=== PATIENT | female | born 2005 | race African-American/Black ===

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

== ENCOUNTER 2024-01-10 23:05 | Emergency (ER) | payer OTHER, SELFPAY ==
[2024-01-10 23:07] VITALS: TEMP 36.5
[2024-01-10 23:08] VITALS: BP 112/84; PULSE 96; RESP 18; O2SAT 100
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
== END 2024-01-10 23:31 | disposition home or self-care (01) ==
PROVIDERS: Emergency Provider Emergency Medicine
DX: S06.0X0A Concussion without loss of consciousness, initial encounter (principal); V89.2XXA Person injured in unspecified motor-vehicle accident, traffic, initial encounter; F32.A Depression, unspecified
CPT/HCPCS: 99282